=== PATIENT | female | born 1955 | race Caucasian/White ===

== ENCOUNTER → 2017-11-10 | Outpatient (CLI) | payer BC ==
[2017-11-10 12:57] LABS: BASO % 1.4 %; BASO ABS # 0.07 K/uL (0-0.2); EOS % 3.7 %; EOS ABS # 0.18 K/uL (0-0.5); HEMATOCRIT 37.1 % (37-47); HEMOGLOBIN 12.2 g/dL (12.0-16.0); IG# 0.01 K/uL (0.00-0.02); LYMPH % 43.2 %; LYMPH ABS # 2.12 K/uL (1.2-3.4); MEAN CELL VOLUME 93.2 fL (80-100); MEAN CORPUSCULAR HEMOGLOBIN 30.7 pg (25-34); MEAN CORPUSCULAR HGB CONC 32.9 g/dl (32-36); MEAN PLATELET VOLUME 9.7 fL (7.4-10.4); MONO % 13.2 %; MONO ABS # 0.65 K/uL (0.11-0.59); NEUT % 38.3 %; NEUT ABS # 1.88 K/uL (1.4-6.5); PLATELET COUNT 338 K/uL (130-400); RED CELL DISTRIBUTION WIDTH CV 13.2 % (11.5-14.5); RED CELL DISTRIBUTION WIDTH SD 45.2 fL (36.4-46.3); WHITE BLOOD COUNT 4.91 K/uL (4.8-10.8)
[2017-11-10 13:09] LABS: HEMOGLOBIN A1C 6.4 % (4.5-5.6)
[2017-11-10 14:30] LABS: ALBUMIN 3.9 gm/dl (3.4-5.0); ALT/SGPT 39 U/L (12-78); AST/SGOT 27 U/L (15-37); BLOOD UREA NITROGEN 19 mg/dl (7-18); CALCIUM 9.6 mg/dl (8.5-10.1); CARBON DIOXIDE 26 mmol/L (21-32); CHOLESTEROL 135 mg/dl (0-200); GLUCOSE 129 mg/dl (70-99); POTASSIUM 4.6 mmol/L (3.5-5.1); SODIUM 140 mmol/L (136-145)
[2017-11-10 14:32] LABS: ALKALINE PHOSPHATASE 88 U/L (45-117); LDL CHOLESTEROL CALCULATED 58 mg/dl; TOTAL PROTEIN 7.7 gm/dl (6.4-8.2)
== END | disposition home or self-care (01) ==
LOC: C.LABMFLN 08:36
PROVIDERS: ATTEND Family Medicine
DX: E78.5 Hyperlipidemia, unspecified (principal); R73.01 Impaired fasting glucose; E55.9 Vitamin D deficiency, unspecified; G47.33 Obstructive sleep apnea (adult) (pediatric)